=== PATIENT | female | born 1995 | race Caucasian/White ===

== ENCOUNTER 2018-03-21 16:29 | Emergency (ER) | payer BC, OTHER ==
[~2018-03-21 16:29] MED LIST: ETON68IM SQ; GUAI600T57 PO
[2018-03-21 16:33] VITALS: BP 131/84
--- NOTE | 2018-03-21 16:37 | ER Report ---
History and Physical Time Seen By MD: 16:37 Hx. of Stated Complaint: LUMP AND PAIN TO LEFT ARMPIT NOTICED 2 DAYS AGO. C/O BODY ACHES AND DECREASED APPETITE. HPI/ROS CHIEF COMPLAINT: Bump in left axilla, nausea, not feeling well. HISTORY OF PRESENT ILLNESS: 22-year-old female patient presents to emergency room with complaint of bump in the left axilla, nausea not feeling well. Patient states the lump seems to come and go. She states that she noticed it at work couple days ago. She states the pain seems to be worsening. She states it hurts when her arm is down or when her arm is raised. She denies having any fevers or chills. She states she has been nauseated and had A general malaise. Patient states that she is taken some ibuprofen with no improvement. Allergies: Coded Allergies: No Known Drug Allergies (Unverified , 03/21/18) Home Meds Active Scripts Sulfamethoxazole/Trimet 800-160 Mg Tab (BACTRIM DS TABLET) 1 Each Tablet, 1 TAB PO Q12H, #14 TAB Prov:JERO BERGERON DATA ENTRY ASSOCIATE 03/21/18 Reported Medications Etonogestrel (NEXPLANON) 68 Mg Implant, 68 MG SQ DIRECTED, IMPLANT 08/07/16 Discontinued Reported Medications Guaifenesin (MUCINEX) 600 Mg Tablet.er, 600 MG PO 08/07/16 Past Medical/Surgical History Patient has a past medical history of alcohol use. Patient has a surgical history of left eye surgery. Reviewed Nurses Notes: Yes Hx Substance Use Disorder: No Hx Alcohol Use: Yes (weeekends) Constitutional Vital Sign - Last 24 Hours 03/21/18 16:33 Temp 97.8 Pulse 115 Resp 18 B/P (MAP) 131/84 Pulse Ox 95 O2 Delivery Room Air Physical Exam General appearance: Alert no distress. Respiratory: Chest is non tender, lungs are clear to auscultation. Cardiac: Regular rate and rhythm. Skin: There is no bump there was palpable in the left axilla. However the patient does have some tenderness. DIFFERENTIAL DIAGNOSIS: After history and physical exam differential diagnosis was considered for abscess, cellulitis Medical Decision Making ED Course/Re-evaluation ED Course Patient was medicated examined, history and physical were obtained. Differential diagnoses were considered. On examination patient does have tenderness in the left axilla, there is no palpable lump noted. I discussed doing lab work, ultrasound. Patient deferred at this time. We'll go ahead and treat her with antibiotics. If there is any worsening of her condition or has no improvement in the next 72 hours I did encourage an ultrasound at that time. Patient is return to emergency room if condition worsens. Patient and her significant other verbalized understanding and agreement with plan. Decision to Disposition Date: Mar 21, 2018 Decision to Disposition Time: 16:55 Depart Departure Latest Vital Signs Vital Signs Date Time Temp Pulse Resp B/P (MAP) Pulse Ox O2 Delivery O2 Flow Rate FiO2 03/21/18 16:33 97.8 115 18 131/84 95 Room Air Impression: Primary Impression: Cellulitis Condition: Improved Disposition: HOME OR SELF-CARE New Scripts Sulfamethoxazole/Trimet 800-160 Mg Tab (BACTRIM DS TABLET) 1 Each Tablet 1 TAB PO Q12H, #14 TAB Prov: JERO BERGERON 03/21/18 Patient Instructions: Cellulitis (ED) Additional Instructions: Limit activity by pain. Get plenty of rest. Take the antibiotics as directed. Try a clear liquid diet for the next 24 hours. You should see significant improvement in 72 hours. If there is no improvement at that time then follow up with your primary care provider or return to the ER. Problem Qualifiers Primary Impression: Cellulitis Site of cellulitis: extremity Site of cellulitis of extremity: axilla Laterality: left Qualified Codes: L03.112 - Cellulitis of left axilla JERO BERGERON Mar 21, 2018 16:37
[2018-03-21] MEDS ORDERED: SULF-198 PO (16:53)
== END 2018-03-21 17:00 | disposition home or self-care (01) ==
LOC: ER 16:50
DX: L03.112 Cellulitis of left axilla (principal)
CPT/HCPCS: 99281